=== PATIENT | female | born 1945 | race Caucasian/White ===

== ENCOUNTER 2017-01-07 16:38 | Emergency (ER) | payer MEDICARE, BC | END 2017-01-07 19:11 | disposition home or self-care (01) | LOC: ER 16:38 | DX: R11.0 Nausea (principal); E07.9 Disorder of thyroid, unspecified; Z79.899 Other long term (current) drug therapy; Z88.1 Allergy status to other antibiotic agents; Z88.5 Allergy status to narcotic agent; Z88.8 Allergy status to other drugs, medicaments and biological substances; Z98.890 Other specified postprocedural states | CPT/HCPCS: 36415 ==